=== PATIENT | female | born 1990 ===

== ENCOUNTER 2016-08-31 13:47 | Emergency (ER) | payer MEDICAID ==
[2016-08-31 13:47] VITALS: BMI 31.6
[2016-08-31 14:08] VITALS: BP 120/78; PULSE 110; RESP 24; TEMP 98; O2SAT 99
--- NOTE | 2016-08-31 15:12 | ED PDOC ---
HPI: Psych/Substance Abuse Time Seen by Provider: 08/31/16 15:04 Chief Complaint (Nursing): Anxiety Chief Complaint (Provider): Panic Attack History Per: Patient History/Exam Limitations: no limitations Onset/Duration Of Symptoms: Sudden Onset Additional Complaint(s): Alfredo Alex is a 26 y/o female, with a past medical history of Anxiety and Asthma, presenting to the ER on 08/31/2016 after having a panic attack on a bus prior to arrival. Patient reports she gets Xanax from her primary doctor. She states despite taking Xanax, her panic attacks have not resolved. She did not take Xanax today. Upon arrival, she offers no other medical or physical complaints except for being "surrounded by negativity". Patient does not have a psychiatrist. PMD- Marci Carmona Past Medical History Reviewed: Historical Data, Nursing Documentation, Vital Signs Vital Signs: Last Vital Signs Temp 98 F 08/31/16 14:06 Pulse 110 H 08/31/16 14:06 Resp 24 08/31/16 14:06 BP 120/78 08/31/16 14:06 Pulse Ox 99 08/31/16 14:06 - Medical History PMH: Anxiety, Asthma Denies: Diabetes, Hepatitis, HIV, HTN, Hyperthyroidism, Chronic Kidney Disease, Seizures, Sexually Transmitted Disease - Family History Family History: States: Unknown Family Hx - Immunization History Hx Tetanus Toxoid Vaccination: Yes (last booster was last year) - Home Medications Home Medications: Ambulatory Orders Medication Instructions Recorded predniSONE [predniSONE Tab] 40 mg PO DAILY #10 tab 06/28/15 Prednisone 60 mg PO QAM #12 tablet 09/15/15 predniSONE [Prednisone] 40 mg PO DAILY #8 tab 01/25/16 - Allergies Allergies/Adverse Reactions: Allergies Allergy/AdvReac Type Severity Reaction Status Date / Time No Known Allergies Allergy Verified 01/02/16 12:24 Review of Systems ROS Statement: Except As Marked, All Systems Reviewed And Found Negative Constitutional: Negative for: Fever Cardiovascular: Negative for: Chest Pain Respiratory: Negative for: Shortness of Breath Neurological: Negative for: Weakness, Numbness Psych: Positive for: Anxiety. Negative for: Depression, Suicidal ideation Physical Exam - Reviewed Nursing Documentation Reviewed: Yes Vital Signs Reviewed: Yes - Physical Exam Appears: Positive for: Non-toxic, No Acute Distress Head Exam: Positive for: ATRAUMATIC, NORMOCEPHALIC Skin: Positive for: Normal Color. Negative for: Rash Eye Exam: Positive for: Normal appearance ENT: Positive for: Normal ENT Inspection Neck: Positive for: Normal, Painless ROM, Supple Cardiovascular/Chest: Positive for: Regular Rate, Rhythm. Negative for: Murmur Respiratory: Positive for: Normal Breath Sounds. Negative for: Respiratory Distress Gastrointestinal/Abdominal: Positive for: Normal Exam, Soft. Negative for: Tenderness Extremity: Positive for: Normal ROM. Negative for: Deformity, Swelling Neurologic/Psych: Positive for: Alert, Oriented. Negative for: Motor/Sensory Deficits - ECG O2 Sat by Pulse Oximetry: 99 Medical Decision Making Medical Decision Makin:04 Initial Impression- 26 y/o female with panic attack in setting of known Anxiety Initial Plan- * Xanax 0.5mg PO * Crisis Eval * Urine Preg Documented by Marcelle Sorenson, acting as a scribe for Concha Fung PA-C All medical record entries made by the Scribe were at my direction and personally dictated by me. I have reviewed the chart and agree that the record accurately reflects my personal performance of the history, physical exam, medical decision making, and the department course for this patient. I have also personally directed, reviewed, and agree with the discharge instructions and disposition. Disposition - Clinical Impression Clinical Impression: Anxiety - Patient ED Disposition Is Patient to be Admitted: No Counseled Patient/Family Regarding: Diagnosis, Need For Followup - Disposition Referrals: [facility] [Outside] Disposition: Routine/Home Disposition Time: 16:18 Condition: STABLE Instructions: Anxiety (ED)
== END 2016-08-31 17:40 | disposition home or self-care (01) ==
LOC: H.ER 13:47
DX: F41.0 Panic disorder [episodic paroxysmal anxiety] (principal)

== ENCOUNTER 2016-12-20 09:14 | Emergency (ER) | payer MEDICAID ==
[2016-12-20 09:14] VITALS: BMI 31.6
[2016-12-20 09:57] VITALS: BP 157/99; PULSE 83; RESP 16; TEMP 97.3; O2SAT 99
--- NOTE | 2016-12-20 11:41 | ED PDOC ---
HPI: Female Pain Time Seen by Provider: 12/20/16 09:25 Chief Complaint (Nursing): Female Genitourinary Chief Complaint (Provider): Female genitourinary History Per: Patient History/Exam Limitations: no limitations Onset/Duration Of Symptoms: Days (x3) Current Symptoms Are (Timing): Still Present Pain Scale Rating Of: 10 Associated Symptoms: Urinary Symptoms (vaginal discharge and difficulty urinating). denies: Fever Additional Complaint(s): Alfredo Alex is a 26 year old female, with a past medical history of anxiety and asthma, who presents to the emergency department complaining of right sided vaginal pain associated with a dark brownish color vaginal discharge and difficulty urinating onset for 3 days. Patient states she can't even sit down due to pain. Patient is sexually active with one partner. She reports having trouble breathing from asthma exacerbation. She denies any fever, or belly pain. No further medical complaints. PMD: None provided. Past Medical History Reviewed: Historical Data, Nursing Documentation, Vital Signs Vital Signs: Last Vital Signs Temp 97.3 F L 12/20/16 09:50 Pulse 83 12/20/16 09:50 Resp 16 12/20/16 09:50 BP 157/99 H 12/20/16 09:50 Pulse Ox 99 12/20/16 09:50 - Medical History PMH: Anxiety, Asthma Denies: Diabetes, Hepatitis, HIV, HTN, Hyperthyroidism, Chronic Kidney Disease, Seizures, Sexually Transmitted Disease - Surgical History Surgical History: No Surg Hx - Family History Family History: States: Unknown Family Hx - Social History Current smoker - smoking cessation education provided: No Alcohol: None Drugs: Denies - Immunization History Hx Tetanus Toxoid Vaccination: Yes (last booster was last year) - Home Medications Home Medications: Ambulatory Orders Medication Instructions Recorded predniSONE [predniSONE Tab] 40 mg PO DAILY #10 tab 06/28/15 Prednisone 60 mg PO QAM #12 tablet 09/15/15 predniSONE [Prednisone] 40 mg PO DAILY #8 tab 01/25/16 Ciprofloxacin HCl [Cipro] 500 mg PO BID #14 tab 12/20/16 - Allergies Allergies/Adverse Reactions: Allergies Allergy/AdvReac Type Severity Reaction Status Date / Time No Known Allergies Allergy Verified 01/02/16 12:24 Review of Systems ROS Statement: Except As Marked, All Systems Reviewed And Found Negative Constitutional: Negative for: Fever Respiratory: Positive for: Shortness of Breath Gastrointestinal: Negative for: Abdominal Pain Genitourinary Female: Positive for: Vaginal Discharge (dark brownish color), Other (difficulty urinating) Physical Exam - Reviewed Nursing Documentation Reviewed: Yes Vital Signs Reviewed: Yes - Physical Exam Appears: Positive for: Non-toxic. Negative for: Well (anxious ) Head Exam: Positive for: ATRAUMATIC, NORMAL INSPECTION, NORMOCEPHALIC Skin: Positive for: Normal Color, Warm, Dry Neck: Positive for: Normal, Painless ROM, Supple Cardiovascular/Chest: Positive for: Regular Rate, Rhythm. Negative for: Murmur Respiratory: Positive for: Wheezing (slight). Negative for: Respiratory Distress Gastrointestinal/Abdominal: Positive for: Normal Exam, Bowel Sounds, Soft Pelvic Exam: Positive for: Discharge (white discharge consistent with fungal infection). Negative for: External Exam Normal (0.5 in x 1 in right sided swelling in labia. Extremely tender to palpation. no induration or typical abscess fluctuance) Extremity: Positive for: Normal ROM Neurologic/Psych: Positive for: Alert, Oriented - ECG O2 Sat by Pulse Oximetry: 99 (RA) Pulse Ox Interpretation: Normal Medical Decision Making Medical Decision Making: Initial Impression: vaginal pain. Possible bartholin cyst vs regular cyst Initial Plan: --Urine dipstick --Toradol 60 mg IM --Urine test --reevaluation -Patient was unable to tolerate full physicial exam. 1045 --Called Dr. Nicole to come see patient. 1400 --Discussed case with Dr. Nicole who will come down to evaluate patient. 1500 --Dr. Nicole saw patient and thinks its just a cyst. Patient will be sent home with Rx for Ciprofloxacin and fluconazole for possible fungal infection. Scribe Attestation: Documented by Alpesh Morfin, acting as a scribe for Joey Sanz MD Provider Scribe Attestation: All medical record entries made by the Scribe were at my direction and personally dictated by me. I have reviewed the chart and agree that the record accurately reflects my personal performance of the history, physical exam, medical decision making, and the department course for this patient. I have also personally directed, reviewed, and agree with the discharge instructions and disposition. Disposition - Clinical Impression Clinical Impression: Genitourinary Pain - Patient ED Disposition Is Patient to be Admitted: No Counseled Patient/Family Regarding: Studies Performed, Diagnosis, Need For Followup - Disposition Referrals: [facility] [Outside] [facility] [Outside] Disposition: Routine/Home Disposition Time: 14:00 Condition: IMPROVED Additional Instructions: follow up with the [facility] in 1-2 days return to the ED with any worsening or concerning symptoms Prescriptions: Ciprofloxacin HCl [Cipro] 500 mg PO BID #14 tab Instructions: Cyst (ED) Forms: [employer] (H[place]er)
[2016-12-20] MEDS ORDERED: Fluconazole 150 MG TAB PO ONE (15:35)
--- NOTE | 2016-12-20 15:43 | CP.PCM.CON ---
History of Present Illness - History of Present Illness History of Present Illness: 26yo female G0 not preg (urine test today) c/o vaginal discomfort for few days. White discharge. Itching. Pain more on right side. No meds used. Review of Systems - Constitutional Constitutional: absent: Chills, Fever - Gastrointestinal Gastrointestinal: absent: Abdominal Pain - Genitourinary Genitourinary: absent: Difficulty Urinating, Urinary Frequency, Urinary Urgency , Freq UTI - Reproductive: Female Reproductive:Female: Normal Menses, Genital Pruritis, Vaginal Pruritis. absent : Pelvic Pain Past Patient History - Infectious Disease Hx of Infectious Diseases: None - Past Social History Alcohol: None Drugs: Denies - CARDIAC Hx Hypertension: No - PULMONARY Hx Asthma: Yes - NEUROLOGICAL Hx Seizures: No - HEENT Hx HEENT Problems: No - RENAL Hx Chronic Kidney Disease: No - ENDOCRINE/METABOLIC Hx Hyperthyroidism: No - HEMATOLOGICAL/ONCOLOGICAL Hx Human Immunodeficiency Virus (HIV): No - INTEGUMENTARY Hx Dermatological Problems: No - MUSCULOSKELETAL/RHEUMATOLOGICAL Hx Musculoskeletal Disorders: No - GASTROINTESTINAL Hx Gastrointestinal Disorders: No - GENITOURINARY/GYNECOLOGICAL Hx Sexually Transmitted Disorders: No - PSYCHIATRIC Hx Anxiety: Yes - SURGICAL HISTORY Hx Surgeries: No - ANESTHESIA Hx Anesthesia: No Meds Home Medications: Home Medication List Medication Instructions Recorded Confirmed Type Ciprofloxacin HCl [Cipro] 500 mg PO BID #14 tab 12/20/16 Rx Allergies/Adverse Reactions: Allergies Allergy/AdvReac Type Severity Reaction Status Date / Time No Known Allergies Allergy Verified 01/02/16 12:24 Physical Exam - Constitutional Appears: Non-toxic - GI/Abdominal Exam GI & Abdominal Exam: Soft. absent: Rebound, Rigid, Tenderness - Exam Speculum exam: Vaginal Discharge Additional comments: white thick discharge noted - nelson right side small vaginal cyst 2-3cm size; not flucultant; no erythema; + tender (vs uncomfortable because she never was examined by [employer] [facility]); no skin lesions. NO BARTHOLIN ABSCESS noted No internal exam done/declined Results - Vital Signs Recent Vital Signs: Last Vital Signs Temp 97.3 F L 12/20/16 09:50 Pulse 83 12/20/16 09:50 Resp 16 12/20/16 09:50 BP 157/99 H 12/20/16 09:50 Pulse Ox 99 12/20/16 14:27 Assessment & Plan - Assessment and Plan (Free Text) Assessment: vaginal cyst - Plan: warm compress/Ab for ?UTI/ Terazol for candidal infection and follow up [facility] in 1 -2w...If increase pain / size of mass see [employer] SU[employer] - Date & Time Date: 12/20/16 Time: 15:10
== END 2016-12-20 16:14 | disposition home or self-care (01) ==
LOC: H.ER 09:14
DX: N94.89 Other specified conditions associated with female genital organs and menstrual cycle (principal); N23 Unspecified renal colic; F41.9 Anxiety disorder, unspecified; N89.8 Other specified noninflammatory disorders of vagina; J45.909 Unspecified asthma, uncomplicated
CPT/HCPCS: 81025; 96372; 99282; J1885